=== PATIENT | male | born 1930 | race Caucasian/White ===

== ENCOUNTER → 2016-07-16 | Outpatient (CLI) | payer OTHER, BC ==
[~2016-07-16] MED LIST: ASPEC81 PO; ASPI81TA28 PO; CALC500C70 PO; CALC600T9 PO; FINA5TAB4 PO; HYDR-5688 PO; MELO15TA10 PO; PRLSR20 PO; SIMV20TA2 PO; TAMS0.4C38 PO; TERA1CAP63 PO; TYLOTC500 PO
--- NOTE | 2016-07-20 11:50 | CODING QUERY MEDICAL NECESSITY ---
SUPPORTING DIAGNOSIS NEEDED A supporting diagnosis is required for the test/procedure performed on this patient in order for us to be reimbursed by the patient's insurance. Please provide a supporting diagnosis for the following test/procedure listed below next to the test name along with your signature. *If there is no additional diagnosis for this patient that would support the following test/procedure please document that below next to the test/procedure. Test(s)/Procedure(s) that require a supporting diagnosis: DOS 07/16 * Vitamin B12 DIAGNOSIS: Provider Signature: Date: Thank you Delphine Umaña Health Information Management Once completed, please kindly fax back to [phone] For questions please call [phone]
== END | disposition home or self-care (01) ==
LOC: C.LABMFLN 07:45
PROVIDERS: ATTEND Family Medicine
DX: E53.8 Deficiency of other specified B group vitamins (principal)

== ENCOUNTER 2016-08-11 09:37 | Emergency (ER) | payer OTHER ==
[~2016-08-11] VITALS: Ht 177.8 cm; Wt 81.1 kg
[~2016-08-11 09:37] MED LIST changes: -ASPI81TA28 PO; -CALC600T9 PO; -HYDR-5688 PO; -MELO15TA10 PO; -TERA1CAP63 PO
[2016-08-11 09:39] VITALS: TEMP 36.4; Ht 177.8 cm; Wt 81.1 kg
[2016-08-11] MEDS ORDERED: CALC600T9 PO (10:00)
[2016-08-11] MEDS ORDERED: MELO15TA10 PO (10:00)
[2016-08-11] MEDS ORDERED: ASPI81TA28 PO (10:00)
[2016-08-11] MEDS ORDERED: TERA1CAP63 PO (10:00)
--- NOTE | 2016-08-11 11:01 | DIAGNOSTIC IMAGING REPORT ---
LEFT SHOULDER MIN 2 VIEWS ROUTINE CLINICAL HISTORY: L shoulder pain COMPARISON: None. DISCUSSION: Severe degenerative change left shoulder. This includes glenohumeral joint as well as acromioclavicular joint. No evidence for superimposed fracture. No evidence of dislocation. There is no evidence for soft tissue swelling. IMPRESSION: Severe degenerative change left shoulder. Electronically signed by: Forrest Rivero M.D. 08/11/2016 11:00 AM Dictated Date/Time: 08/11/2016 10:59 AM
[2016-08-11] MEDS ORDERED: HYDR-5688 PO (11:26)
[2016-08-11 11:44] VITALS: BP 148/66; PULSE 86; O2SAT 97
--- NOTE | 2016-08-11 21:18 | EMERGENCY ROOM VISIT NOTE ---
History First contact with patient: 09:52 Chief Complaint: SHOULDER PAIN Stated Complaint: SHOULDER PAIN History of Present Illness The patient is a 85 year old white male who presents to the Emergency Room with complaints of left shoulder and neck pain that has been present for around 2 weeks. Patient has a history of right shoulder rotator cuff repair. He states that one is doing fine. He had been doing exercises for both of his shoulders. No specific injury that he can recall. For about 2 weeks the left trapezius has been very painful. At this point he states he can no longer stand the discomfort. He has been using Tylenol and Mobic without much relief. He denies any numbness or tingling. He points to the trapezius as the area of discomfort. He notes difficulty raising his arm. No elbow pain. Right-hand dominant. His family members accompany him today. Review of Systems REVIEW OF SYSTEM: HEENT: No dizziness, visual problems, or tinnitus. There is no difficulty swallowing and no oral lesions are present. LYMPH: No adenopathy. PULMONARY: No cough, shortness of breath, sputum production or hemoptysis. CARDIOVASCULAR: No chest pain, palpitations, shortness of breath or peripheral edema. GASTROINTESTINAL: No diarrhea, constipation, nausea, vomiting, or abdominal pain. GENITOURINARY: No dysuria, frequency, urgency or nocturia. NEUROLOGIC: No weakness, muscle tenderness, epilepsy or history of neurological problems. MUSCULOSKELETAL: No history of joint tenderness/swelling. Positive story of arthritis and arthralgias. SKIN: No rashes or lesions. PSYCHIATRIC: No history of depression or mental illness. ENDOCRINE: No history of diabetes, thyroid disorders, or abnormal hair growth. Past Medical/Surgical History Medical history: Significant for UTIs, osteoarthritis, and kidney stones Previous surgeries: Left hip replacement, right shoulder rotator cuff repair, knee arthroscopy. Colonoscopy. Family History Unremarkable. Parents are . Social History Smoking Status: Never Smoker Smokeless Tobacco Use: No Alcohol Use: none Drug Use: none Marital Status: single Housing Status: lives alone Occupation Status: retired Current/Historical Medications Scheduled Aspirin (Aspirin Ec), 81 MG PO DAILY Calcium Carbonate-Vitamin D (Calcium + D), 1 TAB PO DAILY Finasteride (Proscar), 5 MG PO DAILY Omeprazole (Prilosec), 20 MG PO DAILY Simvastatin (Zocor), 10 MG PO DAILY Terazosin Hcl (Hytrin), 10 MG PO HS Scheduled PRN Hydrocodone/Acetaminophen 5MG/325MG (Cope 5MG/325MG), 1 TABLET PO Q6H PRN for Pain Meloxicam (Mobic), 15 MG PO DAILY PRN for Pain Allergies Coded Allergies: Oxycodone (Verified Adverse Reaction, Intermediate, WENT CRAZY, 11/07/12) Physical Exam Vital Signs Date Time Temp Pulse Resp B/P Pulse Ox O2 Delivery O2 Flow Rate FiO2 08/11/16 11:44 86 18 148/66 97 08/11/16 10:55 86 18 148/66 97 Room Air 08/11/16 09:39 36.4 81 18 156/74 96 Room Air Pain Rating (0-10): 7.0 Physical Exam Gen.: Frail, elderly white male, in no acute distress. Obvious discomfort. Sitting on a bed. Alert and oriented. Skin:Warm and dry with good turgor. No rashes or lesions. No ecchymosis or erythema. The patient is not diaphoretic. No abrasions. Musculoskeletal: Left shoulder evaluation reveals wasting of the teres minor. Palpable spasm and trigger point in the left trapezius. Crepitus is palpable with motion of the left shoulder. He has focal discomfort with palpation over the left trapezius. This extends up into the base of the left skull. Limited range of motion of the arm actively. Forward flexion of about 90, abduction of about 80. External rotation of only about 5 beyond neutral. Behind the back reach to his pocket. Full elbow motion. He has pain and weakness associated with Wall testing, and Neer impingement testing, and supraspinatus testing. No focal pain with palpation over the proximal biceps tendon. There is glenohumeral discomfort with palpation both anteriorly and posteriorly. No pain with palpation over the cervical spine. No pain with palpation over the right shoulder. Full range of motion of the neck. Neurologic: Gross sensation is intact across the left arm by soft touch. Peripheral pulses are 2+. Medical Decision & Procedures ER Provider Diagnostic Interpretation: Radiographic imaging obtained today of the left shoulder was reviewed by me and read by radiology. Significant degenerative disease of the glenohumeral joint and before meals joint. Subacromial spurring is present. Obvious high riding humeral head suggestive of rotator cuff pathology. No fractures. ED Course Patient and his family were educated regarding today's findings. Conservative care measures were discussed. Treatment options for him are limited. At his age, I'm not sure that he is a reasonable candidate for shoulder replacement. Most of his pain is in the trapezius, and I think this is likely due to his lack of rotator cuff. He is likely substituting and has poor biomechanics. He also has restrictions and range due to the arthritis. His most reasonable option would be physical therapy. He will speak with his PCP or orthopedist regarding this. Option of trigger point injections was also discussed along with intra-articular cortisone injections. He may make those arrangements with his orthopedist. Return to the ED for any other concerns. Pain management at this time, patient was given a prescription for Cope 5 mg to be used 1/2 tablet every 6 hours as needed. Constipation and fall risks were discussed at length with he and his family. They are aware. He is aware that he is not to drive when taking this medication. Ice may also improve his discomfort. Patient was seen in conjunction with Dr. Rubalcava, who also evaluated the patient and concurred with today's diagnosis and treatment plan. Medical Decision Possibility of cervical radiculopathy, muscle strain, arthritis, rotator cuff pathology, proximal biceps pathology, and respiratory source were considered, among others. Impression Primary Impression: Rotator cuff tear, left Additional Impression: DJD of left shoulder Departure Information Dispostion Home / Self-Care Condition GOOD Prescriptions Hydrocodone/Acetaminophen 5MG/325MG (Cope 5MG/325MG) Tab 1 TABLET PO Q6H Y for Pain, #12 TAB For Initial Treatment Prov: Tobias Rabago,P.A. 08/11/16 Forms HOME CARE DOCUMENTATION FORM, SPECIAL NARCOTICS INSTRUCTIONS, TYLENOL USE, IMPORTANT VISIT INFORMATION Patient Instructions [facility] Additional Instructions Gentle motion daily Follow-up with your PCP for a physical therapy referral Cope 1/2 tablet every 4-6 hours as needed for severe pain-no driving, and be wary of constipation Warm moist compresses to the shoulder may improve your comfort follow-up with your orthopedist to discuss trigger point injections in the trapezius. Continue your Mobic once daily with food Return to the ED for any acute changes or worsening of symptoms Problem Qualifiers Primary Impression: Rotator cuff tear, left Rotator cuff tear extent: unspecified tear extent Qualified Codes: M75.102 - Unspecified rotator cuff tear or rupture of left shoulder, not specified as traumatic Additional Impression: DJD of left shoulder Osteoarthritis type: primary Qualified Codes: M19.012 - Primary osteoarthritis, left shoulder
== END 2016-08-11 11:45 | disposition home or self-care (01) ==
LOC: C.EDB 09:38 → C.EDA 11:45
DX: M75.102 Unspecified rotator cuff tear or rupture of left shoulder, not specified as traumatic (principal); M19.012 Primary osteoarthritis, left shoulder; Z79.82 Long term (current) use of aspirin; Z79.899 Other long term (current) drug therapy

== ENCOUNTER → 2017-06-26 | Outpatient (CLI) | payer OTHER ==
[~2017-06-26] MED LIST changes: -ASPEC81 PO; +ASPI81TA28 PO; -CALC500C70 PO; +CALC600T9 PO; +MELO15TA10 PO; -TAMS0.4C38 PO; +TERA1CAP63 PO; -TYLOTC500 PO
[2017-06-26 13:19] LABS: BASO % 0.3 %; BASO ABS # 0.01 K/uL (0-0.2); EOS ABS # 0.04 K/uL (0-0.5); IG# 0.01 K/uL (0.00-0.02); LYMPH % 39.9 %; LYMPH ABS # 1.53 K/uL (1.2-3.4); MEAN CELL VOLUME 96.9 fL (80-100); MEAN CORPUSCULAR HEMOGLOBIN 33.2 pg (25-34); MEAN CORPUSCULAR HGB CONC 34.2 g/dl (32-36); MEAN PLATELET VOLUME 9.5 fL (7.4-10.4); MONO % 13.1 %; NEUT % 45.4 %; NEUT ABS # 1.74 K/uL (1.4-6.5); PLATELET COUNT 143 K/uL (130-400); RED CELL DISTRIBUTION WIDTH CV 12.8 % (11.5-14.5); RED CELL DISTRIBUTION WIDTH SD 44.8 fL (36.4-46.3); WHITE BLOOD COUNT 3.83 K/uL (4.8-10.8)
[2017-06-26 14:10] LABS: ALT/SGPT 25 U/L (12-78); BLOOD UREA NITROGEN 19 mg/dl (7-18); CARBON DIOXIDE 27 mmol/L (21-32); CHOLESTEROL 139 mg/dl (0-200); CREATININE 0.74 mg/dl (0.60-1.40); GLUCOSE 92 mg/dl (70-99); POTASSIUM 3.9 mmol/L (3.5-5.1); SODIUM 139 mmol/L (136-145)
[2017-06-26 14:13] LABS: ALKALINE PHOSPHATASE 70 U/L (45-117); AST/SGOT 20 U/L (15-37); LDL CHOLESTEROL CALCULATED 61 mg/dl; TOTAL PROTEIN 7.1 gm/dl (6.4-8.2)
== END | disposition home or self-care (01) ==
LOC: C.LABMFLN 08:46
PROVIDERS: ATTEND Family Medicine
DX: E78.5 Hyperlipidemia, unspecified (principal); I10 Essential (primary) hypertension; E53.8 Deficiency of other specified B group vitamins